=== PATIENT | male | born 1980 | race Caucasian/White ===

== ENCOUNTER 2018-01-25 19:01 | Inpatient (IN) | payer SELFPAY ==
[2018-01-25] MEDS ORDERED: methylPREDNISolone Sod Succ/PF 125 MG/2 ML VIAL ONE (19:19)
[2018-01-25] MEDS ORDERED: diphenhydrAMINE 50 MG/ML VIAL ONE (19:19)
--- NOTE | 2018-01-25 19:42 | RAD ---
CHEST TWO VIEWS: 01/25/18 COMPARISON: 11/11/16 HISTORY: Dyspnea. FINDINGS: Normal cardiac silhouette. Pulmonary vessels and hilum are normal. Costophrenic angles are clear. the re are patchy interstitial opacities, predominantly in the left hemithorax. Infiltrate is suspected. No pneumothorax or osseous abnormalities. IMPRESSION: Patchy interstitial opacities predominantly in the left hemithorax. Correlate for infiltrate. POS: [facility]
[2018-01-25 19:55] LABS: Band 1 % (5-11); Eosinophils 4 % (0-10); Lymphocytes 14 % (21-51); MDiff Complete? YES; Mean Corpuscular HGB CONC 34.3 g/dL (32.0-36.0); Mean Corpuscular Hemoglobin 31.5 pg (27.0-31.0); Mean Corpuscular Volume 91.9 fl (80.0-94.0); Mean Platelet Volume 9.3 fL (7.4-10.4); Monocytes 5 % (0-10); Neutrophil 70 % (42-75); PLT Morphology Comment Appears Adequate; Platelet Count 210 thou/uL (130-400); Reactive Lymphocytes 6 % (0-10); Red Blood Cell (RBC) Count 5.09 mill/uL (4.70-6.10); White Blood Cell (WBC) Count 10.6 thou/uL (4.8-10.8)
[2018-01-25 20:02] LABS: ALT (SGPT) 12 U/L (8-55); AST (SGOT) 11 U/L (5-34); Albumin 3.9 g/dL (3.5-5.0); Alkaline Phosphatase 93 U/L (40-150); Anion Gap 12 mmol/L (10-20); BUN (Urea Nitrogen) 16 mg/dL (8.9-20.6); Bilirubin, Total 0.2 mg/dL (0.2-1.2); CK (CPK) 111 U/L (30-200); Calc. Creatinine Clearance 0 mL/min (70-130); Calcium 8.9 mg/dL (7.8-10.44); Carbon Dioxide 29 mmol/L (22-29); Chloride 104 mmol/L (98-107); Estimated GFR-MDRD Greater than 90; Glucose 99 mg/dL (70-105); Potassium 3.8 mmol/L (3.5-5.1); Protein, Total 7.9 g/dL (6.0-8.3); Sodium 141 mmol/L (136-145)
[2018-01-25 20:03] LABS: CKMB 1.2 ng/mL (0-6.6); Troponin I Less than 0.010 ng/mL (< 0.028)
[2018-01-25] MEDS ORDERED: cefTRIAXone\\ROCEPHIN 1 GM VIAL ONE (20:07)
[2018-01-25] MEDS ORDERED: Azithromycin 500 MG VIAL ONE (20:31)
[2018-01-25] MEDS ORDERED: Ondansetron ODT 4 MG TAB SL PRN (22:11)
[2018-01-25] MEDS ORDERED: Ondansetron HCl/PF 4 MG/2 ML Vial IVP PRN (22:11)
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
[2018-01-25] MEDS ORDERED: Calcium Carbonate 500 MG ChewTAB PO PRN (22:38)
[2018-01-25] MEDS ORDERED: Ondansetron ODT 4 MG TAB PO PRN (22:38)
[2018-01-25] MEDS ORDERED: Acetaminophen 325 MG TAB PO PRN (22:38)
[2018-01-25] MEDS ORDERED: Acetaminophen 650 MG Suppository PR PRN (22:38)
[2018-01-25] MEDS ORDERED: Azithromycin 250 MG TAB PO ONE (22:49)
[2018-01-25] MEDS ORDERED: cefTRIAXone\\ROCEPHIN 1 GM in Syringe 10 ML IVPB SCH (23:59)
[2018-01-26 07:07] LABS: #Lymphocytes 0.9 thou/uL (1.20-3.40); #Monocytes 0.1 thou/uL (0.11-0.59); #Neutrophils 9.8 thou/uL (1.40-6.50); %Basophils 0.2 % (0.0-1.0); %Eosinophils 0.3 % (0.0-10.0); %Monocytes 0.6 % (0.0-10.0); %Neutrophils 90.9 % (42.0-75.0); Hemoglobin 16.2 g/dL (14.0-18.0); Mean Corpuscular HGB CONC 32.8 g/dL (32.0-36.0); Mean Corpuscular Hemoglobin 31.7 pg (27.0-31.0); Mean Corpuscular Volume 96.6 fl (80.0-94.0); Mean Platelet Volume 8.5 fL (7.4-10.4); Platelet Count 210 thou/uL (130-400); RBC Distribution Width 12.2 % (11.5-14.5); Red Blood Cell (RBC) Count 5.12 mill/uL (4.70-6.10); White Blood Cell (WBC) Count 10.8 thou/uL (4.8-10.8)
[2018-01-26] MEDS ORDERED: Azithromycin 250 MG TAB PO SCH (09:00)
--- NOTE | 2018-01-26 09:21 | PDOC.FM ---
- Subjective Subjective: Patient reports having continued breathing difficulty overnight and this morning with white yellow mucous production. Denies N/V, CP, changes in appetite , weakness. - Objective MAR Reviewed: Yes Vital Signs & Weight: Vital Signs (12 hours) Temp Pulse Resp BP BP Pulse Ox 01/26/18 08:45 98.3 F 105 H 8 L 122/62 88 L 01/26/18 08:05 96 01/26/18 08:04 100 24 H 01/26/18 03:10 101 H 20 132/65 89 L 01/26/18 01:59 104 H 22 H 90 L 01/26/18 00:05 90 L 01/25/18 23:42 65 L 01/25/18 22:38 98.7 F 98 20 01/25/18 21:38 98.7 F 98 20 133/71 96 Weight Weight 159.982 kg Result Diagrams: 01/26/18 04:12 01/25/18 19:39 <Phani Matthew - Last Filed: 01/26/18 09:20> - Objective Result Diagrams: 01/26/18 04:12 01/25/18 19:39 <Parvin Garcia - Last Filed: 01/26/18 13:36> Phys Exam - Physical Examination Constitutional: NAD HEENT: moist MMs, oral pharynx no lesions ventimask at 10L Neck: full ROM diffuse wheezing throughout, exam limited 2/2 body habitus Cardiovascular: RRR, no significant murmur Musculoskeletal: pulses present Neurological: normal sensation, moves all 4 limbs Psychiatric: normal affect, A&O x 3 Skin: no rash <Phani Matthew - Last Filed: 01/26/18 09:20> Dx/Plan (1) Acute respiratory failure with hypoxia Code(s): J96.01 - ACUTE RESPIRATORY FAILURE WITH HYPOXIA Status: Acute Plan: currently at 88-90% with 10L on Venti mask. continue to monitor throughout the day duonebs scheduled (2) Community acquired pneumonia Code(s): J18.9 - PNEUMONIA, UNSPECIFIED ORGANISM Status: Acute Plan: continue with azithromycin (3) Obesity Code(s): E66.9 - OBESITY, UNSPECIFIED Status: Acute (4) Tobacco abuse Code(s): Z72.0 - TOBACCO USE Status: Acute <Phani Matthew - Last Filed: 01/26/18 09:20> Attending Addendum - Attending Addendum Date/Time: 01/26/18 1000 I personally evaluated the patient and discussed the management with Dr. Matthew I agree with the History, Examination, Assessment and Plan documented above with any addition or exceptions noted below. Patient is A&O x 3 in nad. He is requesting to be sent home. Lungs- occ wheeze , rhonchi in MALINI. Hypoxia secondary to CAP- O2 to keep sats >92%. Was on ventimask overnight because he refused nasal cannula. Will try to transition back to [place] to see how much O2 he is requiring. CAP-On Azithromycin and Rocephin. Nebs as needed. Presumed JOSE CARLOS- apnea and desats overnight- patient will need an outpatient sleep study. Strong family history of colon cancer- will need o/p colonoscopy. <Parvin Garcia - Last Filed: 01/26/18 13:36>
[2018-01-26] MEDS: Azithromycin 250 MG TAB PO SCH (09:25)
[2018-01-26 12:37] LABS: CO2 Tension 66.6 mmHg (35.0-45.0)
[2018-01-26 12:38] LABS: Actual Bicarbonate (HCO3a) 31.9 mEq/L (22-26); Base Excess (BEa) 3.2 mEq/L (0 (+/-) 2.5); Hematocrit-ABG 51.2 % (42.0-52.0); Hemoglobin (Hb) 15.7 g/dL (14.0-18.0)
[2018-01-26 12:39] LABS: Calcium, Ionized 1.3 mmol/L (1.12-1.30); Puncture Site RRA
--- NOTE | 2018-01-26 13:18 | PDOC.EVN ---
Event Note - Event Note Event Note: 37 yo with acute hypoxic respiratory failure who was still requiring significant o2 and having 90 o2 saturation. ABG was ordered which showed hypoxia super imposed on chronic hypercapneic respiratory failure. Patient had normal mentation, tachypnea, but only mild increased WOB. He is morbidly obese. He reportedly had several apneic events overnight. Plan: repeat CXR to rule out ARDS, transfer to [facility], start ppx lovenox, and start continuous bipap. Will order a Stat CTA that can be done during transport to [facility]. <Norris Rodriguez - Last Filed: 01/26/18 13:30> Attending Addendum - Attending Addendum Date/Time: 01/26/18 3817 I personally evaluated the patient and discussed the management with Dr. Rodriguez I agree with the History, Examination, Assessment and Plan documented above with any addition or exceptions noted below- Patient currently feeling better. Earlier had increased work of breathing and complaining of SOB. (+) cough. O2 sat 99% on 2L NC P 105 Lungs- few crakles in bases and diminished BS. CV- tachycardic. A/P: 1) Acute on chronic hypoxic resp failure- improved currently; will monitor in [facility]. pulmonary notified. Plan for BiPap/CPap while asleep for presumptive JOSE CARLOS. <Paola Carrasco - Last Filed: 01/26/18 15:23>
--- NOTE | 2018-01-26 14:26 | RAD ---
CHEST 1 VIEW: HISTORY: Pneumonia. COMPARISON: 01/25/18. FINDINGS: Cardiac silhouette is magnified by projection. Pulmonary vasculature is upper limits of normal. Med iastinum is midline. Right hemidiaphragm remains elevated. No lobar consolidation or evidence of pn eumothorax. IMPRESSION: Mild pulmonary vascular congestion. POS: [facility]
[2018-01-26] MEDS ORDERED: Enoxaparin Sodium 40 MG/0.4 ML SYRINGE SC SCH (15:00)
[2018-01-26] MEDS ORDERED: Iopamidol 370 76% 100 ML VIAL ONE (15:14)
--- NOTE | 2018-01-26 15:18 | CT ---
CT ARTERIOGRAM CHEST WITH IV CONTRAST AND 3D MIP IMAGING: HISTORY: Chest pain. Dyspnea. FINDINGS: There is good contrast opacification of the pulmonary arteries and thoracic aorta with bovine origin of the great vessels from the aortic arch. Motion artifact limits detail of the more peripheral pulm onary arteries. Minimal bibasilar atelectasis. Calcified granulomata are consistent with healed granulomatous diseas e. IMPRESSION: No CT evidence of pulmonary embolus. POS: [facility]
[2018-01-26] MEDS ORDERED: predniSONE 20 MG TAB PO SCH (15:45)
[2018-01-26] MEDS ORDERED: Furosemide 20 MG/2 ML VIAL SLOW IVP SCH (15:45)
--- NOTE | 2018-01-26 16:20 | CON ---
DATE OF CONSULTATION: 01/26/2018 SERVICE: Pulmonary Medicine. REASON FOR CONSULT: Respiratory failure. HISTORY OF PRESENT ILLNESS: The patient is a 37-year-old white male with past medical history significant for morbid obesity. He was in his usual state of health until Monday. At that point, started having some allergy issues. He got a tickle in the throat yesterday morning. Yesterday, he was doing some yard work. He did fairly well throughout the day, but did notice increasing dyspnea with exertion at that time. He was not having any fevers or chills, but later that evening, he started having a cough, bringing up clear sputum as well as chunks of mucus and dark yellow material. Ultimately, he was struggling along and on Monday, he went to [place] to get some auto parts. He went into the store and picked up his parts and put him in his truck. He then climbed into his cab and had a sudden onset of horrendous shortness of breath and lightheadedness. He has also had a little bit of palpitations from time to time. That being said, denies having any chest pain, nausea, vomiting, diarrhea , arthralgias, arthritis. He is not having any dysuria and otherwise, he is in his usual state of health. He was subsequently put in the hospital and treated for pneumonia. That being said, on the floor, he had increasing respiratory distress. He was subsequently brought to the IMCU in a consult and he was generated. On the way down, they went to the CT scan and looking for a pulmonary embolism. By the time he got here, he was on 2 liters nasal cannula and her saturations were doing just fine. PAST MEDICAL HISTORY: None. PAST SURGICAL HISTORY: Left hand surgery. FAMILY HISTORY: Noncontributory. SOCIAL HISTORY: He has got about a 10-15 pack year history of smoking. He uses alcohol occasionally. He denies any street drugs. He has no exposure to chemicals, dust, asbestos or tuberculosis otherwise. ALLERGIES: No known drug allergies. MEDICATIONS: List of his inpatient medications were reviewed. Couple of small updates were made. REVIEW OF SYSTEMS: General, head, ears, eyes, nose, throat, cardiovascular, respiratory, GI, , musculoskeletal, neurologic and skin is negative except as mentioned in the HPI. PHYSICAL EXAMINATION: VITAL SIGNS: Afebrile, pulse 98, blood pressure 135/59, respirations 20, saturation 97% on 2 liters nasal cannula. GENERAL: The patient is awake, alert, no apparent distress. LUNGS: Decent air entry bilaterally. There is no prolonged expiratory phase, but I do appreciate wheezing. Crackles are present throughout bilateral lung cifuentes and more predominantly displayed in the bibasilar regions. HEART: Normal rate, regular. ABDOMEN: Soft, nontender, nondistended. Bowel sounds are positive. MUSCULOSKELETAL: No cyanosis or clubbing. There is trace pitting in the bilateral lower extremities. NEUROLOGIC: Grossly nonfocal. IMAGING: WBC 10.8, hemoglobin 16.2, platelets 210,000. Neutrophil count is essentially unremarkable before steroids were initiated. A pH 7.30, pCO2 66, pO2 of 65. This was on a Ventimask at that time. Basic metabolic profile and liver function studies are essentially unremarkable. Cardiac enzymes negative x1. IMAGING: CT of the chest demonstrates no acute cardiopulmonary abnormality other than some very subtle changes consistent with slight volume overload including interstitial fullness, and ground glass opacifications, which seemed to be a little bit more predominantly displayed in the periphery and in the bibasilar region. Small areas of atelectasis were noted. Of note, there is no large PE identified. ASSESSMENT: 1. Acute hypoxic respiratory failure. 2. Chronic hypercapnic respiratory failure. 2. Acute on chronic diastolic heart failure. 3. Acute bronchitis, possible. 4. Tobacco abuse. PLAN: I will initiate the patient on 40 mg of prednisone daily for a total duration of 5 days. He does not have a consolidating pneumonia, but he could still have an atypical pneumonia. As such, we will continue the azithromycin, but dropped the Rocephin. Echocardiogram will be performed. We will give him a couple doses of Lasix today and tomorrow morning. We will schedule nebulized medications. I will send off a respiratory virus panel, but his presentation was a slightly atypical for an acute viral infection. Pulmonary Critical Care will continue to follow along. He very likely has sleep apnea, so we will put him on BiPAP. Based on his size, we will give him slightly more generous pressures at 15/11 and see how he tolerates that this evening. 70 minutes have been devoted to this patient in various activities. I personally reviewed all imaging studies and laboratory data noted within this document. For fifty percent of this time, I was interacting with the patient at the bedside or coordinating care with the care team. For the remainder of the time I was immediately available to the patient in the hospital unit. ENRRIQUE
--- NOTE | 2018-01-27 05:54 | PDOC.FM ---
- Subjective Subjective: Patient is doing quite well this morning. Reports the best night of sleep he's ever had using the BIPAP. His SOB, cough, and overall poor feeling is greatly decreased. He is worried about getting home to take care of his dogs. He feels well enough to go home. This morning, he two episodes where his saturation dropped into the 80's on bipap and his HR dropped into the 40's. Patient resting comfortably during these episodes which were short lived. - Objective MAR Reviewed: Yes Vital Signs & Weight: Vital Signs (12 hours) Temp Pulse Resp BP Pulse Ox 01/27/18 04:00 97.8 F 81 18 118/57 L 97 01/27/18 02:53 75 18 96 01/27/18 00:00 98.6 F 103 H 20 144/58 H 93 L 01/26/18 23:20 99 24 H 97 01/26/18 23:12 94 20 98 01/26/18 20:00 99.6 F 102 H 22 H 128/73 93 L 01/26/18 18:57 95 20 96 I&O: 01/25/18 01/26/18 01/27/18 06:59 06:59 06:59 Intake Total 732 Output Total 475 Balance 257 Result Diagrams: 01/27/18 07:05 01/27/18 07:05 <Doretha Candelario - Last Filed: 01/27/18 11:44> - Objective Vital Signs & Weight: Vital Signs (12 hours) Temp Pulse Resp BP Pulse Ox 01/27/18 11:26 98.6 F 90 16 134/63 97 01/27/18 08:08 81 18 92 L 01/27/18 08:00 98.8 F 78 22 H 95 01/27/18 07:30 98.8 F 78 22 H 123/73 95 01/27/18 04:00 97.8 F 81 18 118/57 L 97 01/27/18 02:53 75 18 96 I&O: 01/26/18 01/27/18 01/28/18 06:59 06:59 06:59 Intake Total 3172 Output Total 875 Balance 2297 Result Diagrams: 01/27/18 07:05 01/27/18 07:05 <Cb Ryder - Last Filed: 01/27/18 12:20> Phys Exam - Physical Examination Constitutional: NAD morbidly obese HEENT: moist MMs Respiratory: no wheezing, no rales RLL with decreased breath sounds, no increased work of breathing good air movement Cardiovascular: RRR, no significant murmur Gastrointestinal: soft, non-tender, no distention Musculoskeletal: no edema Neurological: moves all 4 limbs Psychiatric: normal affect, A&O x 3 <Doretha Candelario - Last Filed: 01/27/18 11:44> Dx/Plan (1) Acute respiratory failure with hypoxia Code(s): J96.01 - ACUTE RESPIRATORY FAILURE WITH HYPOXIA Status: Acute (2) Community acquired pneumonia Code(s): J18.9 - PNEUMONIA, UNSPECIFIED ORGANISM Status: Acute (3) Obesity Code(s): E66.9 - OBESITY, UNSPECIFIED Status: Acute (4) Tobacco abuse Code(s): Z72.0 - TOBACCO USE Status: Acute (5) Obstructive sleep apnea Code(s): G47.33 - OBSTRUCTIVE SLEEP APNEA (ADULT) (PEDIATRIC) Status: Suspected - Plan Plan: Acute Hypoxic Resp Failure 2/2 CAP -Cxray- shows infiltrate in L. lung -Continue Azithromycin -Respiratory viral panel + for rhinovirus -Duonebs q4 hrs -Patient on bipap overnight and tolerating well. -transfer to the floor today with bipap use overnight. Pulmonary Edema -Lasix daily Suspected JOSE CARLOS -f/u with Dr. Celestin outpatient for sleep study -will need CPAP at home Tobacco Abuse -Encourage cessation Dispo: Likely d/c home tomorrow if not requiring o2 <Doretha Candelario - Last Filed: 01/27/18 11:44> Attending Addendum - Attending Addendum Date/Time: 01/27/18 1215 I personally evaluated the patient and discussed the management with Dr. Candelario I agree with the History, Examination, Assessment and Plan documented above with any addition or exceptions noted below. Patient with notable rhinovirus on viral panel should be stable to dismiss home this pm with further outpatient management attempt arrange ventilatory support for JOSE CARLOS. <Cb Ryder - Last Filed: 01/27/18 12:20>
--- NOTE | 2018-01-27 06:07 | PRG ---
DATE OF SERVICE: 01/27/2018 SERVICE: Pulmonary Medicine. INTERVAL HISTORY: The patient is doing fine from a respiratory standpoint. He is breathing comfortably. He loves his CPAP. He broke out into a little sweat overnight because the mattress does not breathe. Otherwise, he denies any current fevers, chills, nausea or vomiting. His breathing is much more comfortable this morning. No labor when he is doing it. We are waiting for the results of the echocardiogram. PHYSICAL EXAMINATION: VITAL SIGNS: Afebrile currently. His T-max overnight was 99.6. Pulse 75, blood pressure 144/58, respirations 20, saturation 96% on 21% FiO2 delivered via BiPAP. HEENT: Normocephalic, atraumatic. Sclerae are white, conjunctivae pink. Oral and nasal mucosa is moist without lesions. LUNGS: Excellent air entry. The crackles are much improved. The expiratory wheezing is no longer present. HEART: Normal rate, regular. ABDOMEN: Soft, nontender, nondistended. Bowel sounds are positive. MUSCULOSKELETAL: No cyanosis or clubbing. There is trace pitting in the bilateral lower extremities. NEUROLOGIC: Grossly nonfocal. LABORATORY DATA: WBC 10.8, hemoglobin 16.2, platelets 210,000. Basic metabolic profile is otherwise unremarkable. PH of 7.30, pCO2 of 66, pO2 of 65 at that time. Basic metabolic profile and liver function studies are essentially unremarkable. CK-MB is normal as well as troponin. Respiratory virus panel is positive for rhinovirus. ASSESSMENT: 1. Acute hypoxic respiratory failure, improving. 2. Acute on chronic diastolic heart failure. 3. Acute bronchitis secondary to rhinovirus. 4. Tobacco abuse. 5. Obstructive sleep apnea, suspected. PLAN: The patient can have 5 days of steroids, and antibiotics. We will need to be evaluated for sleep apnea in the outpatient setting. From my perspective , he is stable for transition to the medical unit. Pulmonary Critical Care will continue to follow along during the hospital stay. If he remains stable, he can likely be considered for discharge this afternoon or tomorrow morning if things go well. ENRRIQUE
[2018-01-27 07:12] LABS: #Basophils 0.1 thou/uL (0.0-0.2); #Lymphocytes 2.7 thou/uL (1.20-3.40); #Neutrophils 8.8 thou/uL (1.40-6.50); %Basophils 0.6 % (0.0-1.0); %Eosinophils 0.3 % (0.0-10.0); %Lymphocytes 21.3 % (21.0-51.0); %Monocytes 8.1 % (0.0-10.0); %Neutrophils 69.8 % (42.0-75.0); Hemoglobin 15.3 g/dL (14.0-18.0); Mean Corpuscular HGB CONC 32.5 g/dL (32.0-36.0); Mean Corpuscular Hemoglobin 31.4 pg (27.0-31.0); Mean Corpuscular Volume 96.8 fl (80.0-94.0); Mean Platelet Volume 8.1 fL (7.4-10.4); Platelet Count 207 thou/uL (130-400); RBC Distribution Width 12.5 % (11.5-14.5); Red Blood Cell (RBC) Count 4.85 mill/uL (4.70-6.10); White Blood Cell (WBC) Count 12.5 thou/uL (4.8-10.8)
[2018-01-27 07:34] LABS: Anion Gap 10 mmol/L (10-20); BUN (Urea Nitrogen) 12 mg/dL (8.9-20.6); Calc. Creatinine Clearance 332 mL/min (70-130); Calcium 8.9 mg/dL (7.8-10.44); Carbon Dioxide 31 mmol/L (22-29); Chloride 101 mmol/L (98-107); Estimated GFR-MDRD Greater than 90; Glucose 108 mg/dL (70-105); Potassium 4.2 mmol/L (3.5-5.1); Sodium 138 mmol/L (136-145)
[2018-01-27] MEDS ORDERED: predniSONE 20 MG TAB PO SCH (08:00)
[2018-01-27] MEDS: Azithromycin 250 MG TAB PO SCH (08:06)
[2018-01-27] MEDS ORDERED: Enoxaparin Sodium 40 MG/0.4 ML SYRINGE SC SCH (09:00)
[2018-01-27] MEDS ORDERED: Furosemide 20 MG/2 ML VIAL SLOW IVP SCH (09:00)
[2018-01-27] MEDS: guaiFENesin/DM ER PO SCH ×2 (09:28→20:39)
[2018-01-27] MEDS ORDERED: guaiFENesin/DM ER PO PRN (16:35)
[2018-01-27 16:58] VITALS: BP 133/81; TEMP 98.3
--- NOTE | 2018-01-29 15:14 | DIS-2 ---
DATE OF ADMISSION: 01/26/2018 DATE OF DISCHARGE: 01/27/2018 ADMITTING RESIDENT: Dr. Compa Santos. DISCHARGE RESIDENT: Doretha Candelario DO ADMITTING ATTENDING: Dr. Guerline Corral. DISCHARGE ATTENDING: Dr. Cb Ryder. CONSULTATIONS: Pulmonary, Dr. Celestin. PROCEDURES/IMAGING: Chest x-ray shows patchy interstitial opacities predominantly in the left hemith orax that was performed on 01/25/2018. Chest x-ray on 01/26/2018 with mild pulmonary vascular conges tion. Chest thorax CTA reveals no CT evidence of pulmonary embolus and bibasilar atelectasis as well as calcified granulomata consistent with healing granulomatous disease. PRIMARY DIAGNOSES: 1. Acute hypoxia, resolved. 2. Community-acquired pneumonia. 3. Pulmonary edema. 4. Suspected obstructive sleep apnea. 5. Tobacco abuse. DISCHARGE MEDICATIONS: 1. Prednisone 20 mg tablet p.o. daily for 5 days. 2. Lasix 20 mg p.o. daily. 3. Azithromycin 250 mg p.o. daily x5 days. 4. Albuterol sulfate inhaler 1 puff inhaled q.4 hours p.r.n. shortness of breath. DISCONTINUED MEDICATIONS: None. HISTORY OF PRESENT ILLNESS AND HOSPITAL COURSE: Patient is a 37-year-old male who comes in with chief complaint of shortness of breath and dyspnea on exertion. He started getting sick on Mon day with a runny nose and nasal congestion. He tried allergy medication with no relief. He denies n ausea, vomiting, diarrhea, and constipation. Denies chest pain. Does report feeling feverish and so me head congestion. On admission, he was satting 88% on room air. He required 2 liters of oxygen at this time. He was started on Rocephin and azithromycin for antibiotic coverage of possible communit y-acquired pneumonia with a chest x-ray showing infiltrate in the left hemithorax. DuoNebs were sche duled every 4 hours. He was initially admitted to medical observations, where he was found to have s ignificant O2 requirements, satting 98% with nasal cannula on, and ABG confirmed hypoxia superimposed on chronic hypercapnic respiratory failure. At this time, also patient did have reports of several apneic events overnight. At this time, a chest x-ray was ordered and he was transferred to the [facility] for BiPAP. Chest x-ray was within normal limits, only showing vascular congestion. He was started o n BiPAP and tolerated it well. Patient reports the best sleep of his life while on the BiPAP that ev ening. A CTA was ordered to rule out pulmonary embolus, which was negative. Despite chest x-ray elli wing vascular congestion only, patient was continued on antibiotics for complete course. Exam still consistent with a pneumonia. After being on the BiPAP, patient's hypoxia improved. He was weaned of f nasal cannula, satting about 95% on room air. His vital signs remained stable throughout his stay. Other than the hypoxia that was mentioned above. Labs values within normal limits with exception o f a mild left shift and the ABG which showed pH of 7.3, pCO2 of 66.6, PaO2 of 65. Respiratory viral panel was ordered. The patient was positive for rhinovirus and echocardiogram was performed, which s howed normal left ventricular function, although exam was technically difficult, patient back at base line. Not requiring any oxygen. He was discharged home to follow up with Dr. Celestin in clinic for a sleep study and evaluation for JOSE CARLOS. DISPOSITION: Stable. DISCHARGE INSTRUCTIONS: 1. Location: Home. 2. Diet: Regular. 3. Activity: As tolerated. 4. Follow up with Dr. Celestin in 1-2 weeks and [facility] in 1-2 weeks.
== END 2018-01-27 21:58 | disposition home or self-care (01) | DRG 193 ==
LOC: SCSER 19:01 → 2SW 20:25 → OBSVTOIN 01-26 12:35 → IMCU/EMU 01-26 14:35 → T4-A 01-27 12:37
PROVIDERS: ADMIT Family Medicine; ATTEND Family Medicine
PROC: 5A09357 Assistance with Respiratory Ventilation, Less than 24 Consecutive Hours, Continuous Positive Airway Pressure (ICD-10-PCS; principal; 2018-01-26)
DX: J18.9 Pneumonia, unspecified organism (principal); J96.21 Acute and chronic respiratory failure with hypoxia; I50.33 Acute on chronic diastolic (congestive) heart failure; Z68.43 Body mass index [BMI] 50.0-59.9, adult; E66.01 Morbid (severe) obesity due to excess calories; F17.210 Nicotine dependence, cigarettes, uncomplicated; G47.33 Obstructive sleep apnea (adult) (pediatric); B97.89 Other viral agents as the cause of diseases classified elsewhere
CPT/HCPCS: 36415; 71045; 71046; 71275; 80048; 80053; 82550; 82553; 82805; 84484; 85025; 87633; 87798; 93005; 93306; 94640; 94660; 94760; 96365; 96367; 96375; 99406; J0456; J0696; J1200; J2930; J7620

== ENCOUNTER 2020-04-11 02:13 | Inpatient (IN) | payer SELFPAY, OTHER ==
--- NOTE | 2020-04-11 04:05 | PDOC.FPRHP ---
- History of Present Illness Chief Complaint: SOB History of Present Illness: Patient is a 40 y/o male with a PMH significant for Morbid Obesity, Tobacco Abuse, and Untreated JOSE CARLOS who presents to the ED from an outside hospital after experiencing extreme SOB. Patient states that for the past 2 days , he has noticed a worsening of his chronic cough, as well as mild increase in sputum production. Patient also notes that he has felt a "tightness" in his back , but denies outright chest pain. Patient states that he recently had an episode of generalized weakness and confusion for ~24H, which he attributed to working outside all day and taking in minimal PO intake, but per chart review this episodes resolved following the administration of 2L NS at a nearby hospital. Prior to admission during this encounter, the patient was given Dexamethasone x1, DuoNebs x2 and placed on a Non-Rebreather faskemask when he was found to have an O2Sat in the 70s. However, the patient was subsequently transitioned to 4L NS with O2Sats in the high 90s. Patient denies any other symptoms, to include fevers, chills, changes in vision , feelings of nausea or vomiting, recent travel or known sick contacts. ED Course: See HPI - Allergies/Adverse Reactions Allergies Allergy/AdvReac Type Severity Reaction Status Date / Time shellfish derived Allergy Unknown Verified 04/11/20 05:33 No Known Drug Allergies Allergy Verified 12/23/19 14:13 - Home Medications Medication Instructions Recorded Confirmed Type No Known 04/11/20 04/11/20 History - History PMHx: JOSE CARLOS PSHx: Non-Contributory FHx: Brother (DM2, Asthma) Social: Tobacco Abuse (2PPD), Minimal EtOH Use, Remote MJ Abuse Code: Full - Review of Systems General: reports: fatigue. denies: fever/chills, weight/appetite/sleep changes Eyes: denies: vision changes ENT: denies: rhinorrhea Respiratory: reports: cough, congestion, shortness of breath Cardiovascular: denies: chest pain, palpitation, edema Gastrointestinal: denies: nausea, vomiting, diarrhea, constipation, abdominal pain, GI bleeding Genitourinary: denies: dysuria Skin: denies: rashes Musculoskeletal: denies: arthritis/arthralgias Neurological: reports: syncope (See HPI). denies: seizure - Vital signs BP: [160/83] HR: [96] RR: [97] Tmax: [98.2] Pox: [92]% on [4L NC] Wt: [178 kg ] - Physical Exam Constitutional: NAD, awake, alert and oriented HEENT: normocephalic and atraumatic, PERRLA, EOMI, conjunctiva clear, no scleral icterus, grossly normal vision, grossly normal hearing, normal nasal mucosa, MMM, oropharynx clear Neck: supple, FROM, no LAD Chest: no-tender to palpation, no lesions Heart: RRR, normal S1/S2 Lungs: good air movement, no rales/rhonchi, no retractions, other (Scant wheezing heard diffusely) Abdomen: soft, non-tender, bowel sounds present, no masses/distention, no hernias Musculoskeletal: normal structure, ROM grossly normal Neurological: no focal deficit Skin: no jaundice Heme/Lymphatic: no unusual bruising or bleeding, no purpura, no LAD FMR H&P: A/P - Problem List (1) Acute respiratory failure with hypoxia Current Visit: No Status: Acute Code(s): J96.01 - ACUTE RESPIRATORY FAILURE WITH HYPOXIA (2) Obesity Current Visit: No Status: Chronic Code(s): E66.9 - OBESITY, UNSPECIFIED Qualifiers: Obesity type: due to excess calories Obesity classification: adult class 3 (BMI >= 40) Body mass index: BMI 50.0-59.9 (3) Tobacco abuse Current Visit: No Status: Chronic Code(s): Z72.0 - TOBACCO USE (4) Obstructive sleep apnea Current Visit: No Status: Chronic Code(s): G47.33 - OBSTRUCTIVE SLEEP APNEA (ADULT) (PEDIATRIC) - Plan Patient is a 40 y/o male with a PMH significant for Morbid Obesity and ongoing Tobacco Abuse who presents to the ED for evaluation of acute onset worsening of his chronic cough and subsequent SOB. # Acute Hypoxic Respiratory Failure -Suspect multi-factorial etiology - most likely 2/2 undiagnosed COPD and/or undiagnosed Asthma, untreated JOSE CARLOS and ongoing Tobacco Abuse -Based on extensive Hx of Tobacco Abuse, COPD Exacerbation appears to be the most likely cause -COVID-19: Negative (Rapid Swab) -RVP: Pending -Patient has been subsequently weened down to 4L NC - will continue as patient tolerates -DuoNebs Q4H JESSICA -Will initiate daily Prednisone and Azithromycin # Morbid Obesity -Possibly contributing factor due to Morbid Hypoventilation Syndrome -Will encourage HH w/ Low Sodium Diet # Tobacco Abuse -Patient endorses a 2PPD Hx -Nicotine Patch 21 mg QD -Will encourage Tobacco Abuse Cessation at subsequent appointment PCP: GERMÁN Code: Full Activity: Ad obdulia Diet: HH VTE PPx: Lovenox Dispo: Patient is currently stable on the Medical Floor for ongoing treatment of Acute Hypoxic Respiratory Failure, likely secondary to undiagnosed COPD Exacerbation. Will continue supplemental O2, DuoNebs, Prednisone and Azithromycin as per above. Continue to ween supplemental O2 as tolerated by the patient and plan for DC when stable. Expected LOS < 48H. FMR H&P: Upper Level - Plan Date/Time: 04/11/20 0405 I, [], have evaluated this patient and agree with findings/plan as outlined by strategy intern resident. Pertinent changes/additions are listed here. Addendum - Attending - Attending Attestation Date/Time: 04/11/20 0800 I personally evaluated the patient and discussed the management with Dr. Amaral. I agree with the History, Examination, Assessment and Plan documented above with any addition or exceptions noted below. Patient here for suspected acute hypoxic resp failure 2/2 Obesity and COPD exacerbation. COVID negative. Continue neb treatments, steroids, wean O2 as tolerated. RVP pending. Further mgmt pending clinical course. He meets inpatient status based on the need for O2.
[2020-04-11 04:11] LABS: Troponin I Less than 0.010 ng/mL (< 0.028)
[2020-04-11] MEDS ORDERED: Acetaminophen 325 MG TAB PO PRN (05:54)
[2020-04-11] MEDS ORDERED: Guaifenesin DM 100-10/5 ML UDCUP PO PRN (05:54)
[2020-04-11 07:42] LABS: Troponin I 0.016 ng/mL (< 0.028)
[2020-04-11] MEDS ORDERED: Nystatin Powder 15 GM BOT TOP PRN (08:54)
[2020-04-11] MEDS ORDERED: Albuterol Sulfate 2.5 mg/3 ml Neb NEB PRN (08:57)
[2020-04-11] MEDS ORDERED: Azithromycin 250 MG TAB PO SCH (09:00)
[2020-04-11] MEDS ORDERED: predniSONE 20 MG TAB PO SCH (09:00)
[2020-04-11] MEDS: Enoxaparin Sodium 40 MG/0.4 ML SYRINGE SC SCH (09:21)
[2020-04-11] MEDS: Nicotine 21 MG PATCH TD SCH (09:21)
[2020-04-11 11:08] LABS: Base Excess (BEa) 7.3 mEq/L (-2.0 to +3.0); Calcium, Ionized (arterial) 1.14 mmol/L (1.12-1.30); Carboxyhemoglobin (COHb) 3.2 gm% (0.0-3.0); Hemoglobin (Hb) 15.3 g/dL (14.0-18.0); O2 Tension (PaO2), arterial 104.4 mmHg (80.0-100.0); Potassium - ABG Lab 5.41 mmol/L (3.70-5.30)
[2020-04-11 11:09] LABS: ALV-art Gradient -7.115 (0-20); CO2 Tension 104.7 mmHg (35.0-45.0); Puncture Site LRA
[2020-04-11 11:23] VITALS: BP 169/89
--- NOTE | 2020-04-11 12:18 | RAD ---
CHEST 1 VIEW PORTABLE: Date: 04/11/2020 HISTORY: Increased somnolence, change in respiratory status. FINDINGS: Less inspiration with some vascular crowding and some minimal increased interstitial markings in the perihilar regions. No new confluent process. No significant pleural effusion. IMPRESSION: Poor inspiratory effort with minimal increased interstitial markings in the perihilar regions since t he prior study. No confluent pneumonia or pleural effusion. Continue short-term follow-up. POS: RRE
--- NOTE | 2020-04-11 16:31 | CON ---
DATE OF CONSULTATION: 04/11/2020 REASON FOR CONSULTATION: Respiratory failure requiring BiPAP. HISTORY OF PRESENT ILLNESS: This is a 40-year-old male, who was hospitalized today with increasing shortness of breath over the last 2 days as well as cough and chest tightness. He was ruled out for COVID with a negative test. His past medical history is remarkable for JOSE CARLOS, but I am not sure he has ever had a sleep study in the past. He was seen by Dr. Celestin back in 2018 from our group and felt to have diastolic heart failure in addition to the sleep apnea. I am not sure he ever went and got sleep study. PAST SURGICAL HISTORY: Unremarkable. FAMILY MEDICAL HISTORY: Remarkable for diabetes and asthma. SOCIAL HISTORY: Two-pack per day smoker. Does not consume alcohol. Occasionally uses marijuana. REVIEW OF SYSTEMS: Cannot be obtained as he is currently obtunded. PHYSICAL EXAMINATION: VITAL SIGNS: Temperature 97, pulse 91, O2 saturation low 90s, on BiPAP, blood pressure 169/89. The patient is . His BMI is 56. GENERAL: He is difficult to arouse. HEENT: Remarkable for class 4 Mallampati airway. NECK: No adenopathy or JVD. LUNGS: Poor air movement. CARDIOVASCULAR: S1 and S2, regular. ABDOMEN: Morbidly obese, soft, nontender. EXTREMITIES: He has insect bites over his legs. He has a fungal rash over his upper chest. LABORATORY DATA: Troponin was 0.016. Procalcitonin was 0.03. PH 7.20, pCO2 of 104, pO2 of 104. Sodium 141, potassium 3.7, chloride 99, CO2 of 32, BUN 13, creatinine 0.8, and glucose 133. Chest x-ray shows cardiomegaly. No mass, effusion, or infiltrate. ASSESSMENT: This patient is likely suffering from obstructive sleep apnea/obesity hypoventilation syndrome. He could have a COPD exacerbation with this. PLAN: 1. BiPAP. 2. Switch to IV steroids since he is somewhat lethargic and probably cannot take oral medications at this time. 3. IV Diamox. 4. Nebulization treatments. Job ID: [id number]
[2020-04-11 17:19] LABS: Actual Bicarbonate (HCO3a) 31.6 mEq/L (22-28); Base Excess (BEa) 2.4 mEq/L (-2.0 to +3.0); Calcium, Ionized (arterial) 1.18 mmol/L (1.12-1.30); Carboxyhemoglobin (COHb) 2.7 gm% (0.0-3.0); Hemoglobin (Hb) 14.9 g/dL (14.0-18.0); O2 Tension (PaO2), arterial 61.3 mmHg (80.0-100.0); Potassium - ABG Lab 4.25 mmol/L (3.70-5.30); pH, Arterial 7.27 (7.35-7.45)
[2020-04-11 17:20] LABS: CO2 Tension 70.6 mmHg (35.0-45.0)
[2020-04-11 17:21] LABS: Puncture Site LB
[2020-04-11] MEDS: methylPREDNISolone Sod Succ 40 MG VIAL IVP SCH ×2 (17:57→23:08)
[2020-04-11] MEDS ORDERED: Sterile Water 10 ML VIAL FS PRN (20:08)
[2020-04-11] MEDS: acetaZOLAMIDE Sodium 500 mg Vial IVP SCH (20:26)
[2020-04-12 03:44] LABS: #Eosinphils 0.1 thou/uL (0.0-0.7); #Lymphocytes 1.3 thou/uL (1.20-3.40); #Monocytes 0.4 thou/uL (0.11-0.59); #Neutrophils 10.3 thou/uL (1.40-6.50); %Eosinophils 0.5 % (0.0-10.0); %Lymphocytes 10.7 % (21.0-51.0); %Monocytes 3.4 % (0.0-10.0); %Neutrophils 85.4 % (42.0-75.0); Hemoglobin 14.6 g/dL (14.0-18.0); Mean Corpuscular HGB CONC 31.9 g/dL (32.0-36.0); Mean Corpuscular Hemoglobin 32.4 pg (27.0-31.0); Mean Platelet Volume 9.5 fL (7.4-10.4); Platelet Count 218 thou/uL (130-400); RBC Distribution Width 13.1 % (11.5-14.5); Red Blood Cell (RBC) Count 4.53 mill/uL (4.70-6.10); White Blood Cell (WBC) Count 12.1 thou/uL (4.8-10.8)
[2020-04-12 03:58] LABS: Anion Gap 14 mmol/L (10-20); BUN (Urea Nitrogen) 10 mg/dL (8.9-20.6); Calc. Creatinine Clearance 313 mL/min (70-130); Calcium 8.8 mg/dL (7.8-10.44); Carbon Dioxide 28 mmol/L (22-29); Chloride 100 mmol/L (98-107); Estimated GFR-MDRD Greater than 90; Glucose 170 mg/dL (70-105); Potassium 4.6 mmol/L (3.5-5.1); Sodium 137 mmol/L (136-145)
[2020-04-12] MEDS: methylPREDNISolone Sod Succ 40 MG VIAL IVP SCH ×4 (05:24→23:39)
--- NOTE | 2020-04-12 06:17 | PDOC.FM ---
- Subjective Subjective: Pt was resting comfortably. Looked noticably more alert than yesterday. - Objective Vital Signs & Weight: Vital Signs (12 hours) Temp Pulse Resp Pulse Ox 04/12/20 03:26 97.7 F 04/12/20 02:55 88 18 96 04/11/20 23:26 97.9 F 04/11/20 23:22 91 20 93 L 04/11/20 20:00 95 04/11/20 19:37 98.2 F 04/11/20 19:27 99 20 98 Weight Weight 178.262 kg Most Recent Monitor Data Heart Rate from ECG 88 NIBP 116/75 NIBP BP-Mean 88 Respiration from ECG 24 SpO2 98 I&O: 04/10/20 04/11/20 04/12/20 06:59 06:59 06:59 Intake Total 3310 Output Total 4350 Balance -1040 Result Diagrams: 04/12/20 03:24 04/12/20 03:24 Phys Exam - Physical Examination Constitutional: NAD HEENT: moist MMs, sclera anicteric Neck: no JVD wheezing bilat Cardiovascular: RRR, no significant murmur Gastrointestinal: non-tender morbidly obese mild edema bilat LE Neurological: non-focal Psychiatric: normal affect Deviation from normal: healing wounds on bilat LE Dx/Plan - Plan Plan: Patient is a 40 y/o male with a PMH significant for Morbid Obesity and ongoing Tobacco Abuse who presents to the ED for evaluation of acute onset worsening of his chronic cough and subsequent SOB. # Acute Hypoxic Respiratory Failure -Suspect multi-factorial etiology - most likely 2/2 undiagnosed COPD, untreated JOSE CARLOS and ongoing Tobacco Abuse -found to be more somnolent, abg showed pH 7.2 w/ CO2 104, moved to IMCU, bipap , now stable -COVID-19: Negative (Rapid Swab) -RVP: neg -Patient has been subsequently weened down to 4L NC - will try to wean and maintain O2 sat around 90% due to underlying COPD -DuhCente Q4H JESSICA -pulm consult: methylpred, acetazolamine added -consulted CM- needs PCP, outpt sleep study #Hypercapnia -likely due to undx JOSE CARLOS, COPD, obesity hypoventilation -put on bipap # Morbid Obesity -contributing factor to current resp status -Will encourage HH w/ Low Sodium Diet # Tobacco Abuse -Patient endorses a 2PPD Hx -Nicotine Patch 21 mg QD -Will encourage Tobacco Abuse Cessation at subsequent appointment PCP: CC Code: Full Activity: Ad obdulia Diet: HH VTE PPx: lovenox Dispo: Patient is currently stable in [facility] for Acute Hypoxic Respiratory Failure , on bipap. consulted CM for help with funding for outpatient sleep study, DC when stable. Expected LOS > 48H. Addendum - Attending - Attending Attestation Date/Time: 04/12/20 0151 I personally evaluated the patient and discussed the management with Dr. Gaming. I agree with the History, Examination, Assessment and Plan documented above with any addition or exceptions noted below. Patient doing improved this morning. Was having worsening hypercapnia with somnolence yesterday that required transfer for Bipap. He reports feeling improved today. Continue steroids, nebs, respiratory support as needed. Suspect combo of JOSE CARLOS/OHS and COPD with exacerbation. Needs outpatient sleep study.
[2020-04-12] MEDS: Enoxaparin Sodium 40 MG/0.4 ML SYRINGE SC SCH (09:09)
[2020-04-12] MEDS: Nicotine 21 MG PATCH TD SCH (09:09)
[2020-04-12] MEDS: acetaZOLAMIDE Sodium 500 mg Vial IVP SCH ×2 (09:09→21:04)
--- NOTE | 2020-04-12 12:01 | PRG ---
DATE OF SERVICE: 04/12/2020 SUBJECTIVE: Mr. Candelario is awake, alert, follows commands. He is about to eat lunch. OBJECTIVE: VITAL SIGNS: Temperature 97.7, pulse 97, blood pressure 163/102, O2 saturation 94%. HEENT: Unremarkable except for class 4 Mallampati airway. NECK: No JVD. CHEST: Clear. CARDIAC: S1 and S2. Regular. ABDOMEN: Soft. EXTREMITIES: No edema. LABORATORY DATA: Sodium 137, potassium 4.6, BUN 10, creatinine 0.7, glucose 170. White blood cell count 12, hematocrit 46, and platelet count 218. ASSESSMENT: Obstructive sleep apnea/obesity hypoventilation syndrome. PLAN: It is a difficult situation. This patient really needs a home BiPAP. He told me he could not afford one even if offered at a discounted [employer]. This is also the reason he has not done a sleep study in the past. My recommendation would be to keep him on the acetazolamide. If case management can meet with him to see if he would qualify for Medicaid or something that would allow us to do a sleep study and get him a CPAP or BiPAP that would be preferable. Job ID: [id number]
[2020-04-13 03:52] LABS: #Eosinphils 0.1 thou/uL (0.0-0.7); #Lymphocytes 1.2 thou/uL (1.20-3.40); #Monocytes 0.7 thou/uL (0.11-0.59); #Neutrophils 14.8 thou/uL (1.40-6.50); %Eosinophils 0.3 % (0.0-10.0); %Lymphocytes 7.3 % (21.0-51.0); %Neutrophils 88.4 % (42.0-75.0); Hemoglobin 15.2 g/dL (14.0-18.0); Mean Corpuscular HGB CONC 32.4 g/dL (32.0-36.0); Mean Corpuscular Hemoglobin 32.7 pg (27.0-31.0); Mean Platelet Volume 8.8 fL (7.4-10.4); Platelet Count 247 thou/uL (130-400); RBC Distribution Width 13.4 % (11.5-14.5); Red Blood Cell (RBC) Count 4.64 mill/uL (4.70-6.10); White Blood Cell (WBC) Count 16.8 thou/uL (4.8-10.8)
[2020-04-13 04:20] LABS: Anion Gap 14 mmol/L (10-20); BUN (Urea Nitrogen) 13 mg/dL (8.9-20.6); Calc. Creatinine Clearance 313 mL/min (70-130); Calcium 9.2 mg/dL (7.8-10.44); Carbon Dioxide 23 mmol/L (22-29); Chloride 103 mmol/L (98-107); Estimated GFR-MDRD Greater than 90; Glucose 173 mg/dL (70-105); Potassium 5.4 mmol/L (3.5-5.1); Sodium 135 mmol/L (136-145)
[2020-04-13] MEDS: methylPREDNISolone Sod Succ 40 MG VIAL IVP SCH (05:14)
[2020-04-13] MEDS: Nicotine 21 MG PATCH TD SCH (05:14)
--- NOTE | 2020-04-13 05:40 | PDOC.FM ---
- Subjective Subjective: Patient has no complaints this morning and says he slept on BIPAP last night. He is on RA this morning and says he is breathing well. Per nursing, patient eats the entirety of his 3 trays during the day, 2 additional lunch boxes, and ~ 10-15 juices per day. - Objective Vital Signs & Weight: Vital Signs (12 hours) Temp Pulse Resp Pulse Ox 04/13/20 03:52 98.0 F 04/13/20 02:09 81 04/13/20 02:08 82 18 96 04/12/20 23:23 97.9 F 04/12/20 22:38 79 20 96 04/12/20 19:18 97.9 F 04/12/20 19:05 96 04/12/20 18:50 81 18 99 Weight Weight 177.808 kg Most Recent Monitor Data Heart Rate from ECG 74 NIBP 145/98 NIBP BP-Mean 113 Respiration from ECG 16 SpO2 97 BPs: 133/70, 170,108, 145/98, 166/98 I&O: 04/11/20 04/12/20 04/13/20 06:59 06:59 06:59 Intake Total 3310 4020 Output Total 4350 5600 Balance -1040 -1580 Result Diagrams: 04/13/20 03:08 04/13/20 03:08 Phys Exam - Physical Examination Constitutional: NAD Respiratory: no wheezing, clear to auscultation bilateral Cardiovascular: RRR, no significant murmur Gastrointestinal: soft, non-tender Musculoskeletal: no edema, pulses present Neurological: non-focal Psychiatric: normal affect, A&O x 3 Dx/Plan - Plan Plan: Patient is a 40 y/o male with a PMH significant for Morbid Obesity and ongoing Tobacco Abuse who presents to the ED for evaluation of acute onset worsening of his chronic cough and subsequent SOB. # Acute Hypoxic Respiratory Failure -Suspect multi-factorial etiology - most likely 2/2 undiagnosed COPD, untreated JOSE CARLOS and ongoing Tobacco Abuse -Found to be more somnolent on 04/12, abg showed pH 7.2 w/ CO2 104, moved to IMCU , bipap, now stable -Patient using BIPAP at night, stable on RA this morning. -COVID-19: Negative (Rapid Swab) -RVP: neg -DuoNebs Q4H JESSICA -Pulm consult: methylpred, acetazolamine added -Consulted CM- needs PCP, outpt sleep study #Hypercapnia -likely due to undx JOSE CARLOS, COPD, obesity hypoventilation -put on bipap # Morbid Obesity -contributing factor to current resp status -Will encourage HH w/ Low Sodium Diet # Tobacco Abuse -Patient endorses a 2PPD Hx -Nicotine Patch 21 mg QD -Will encourage Tobacco Abuse Cessation at subsequent appointment PCP: CC Code: Full Activity: Ad obdulia Diet: HH VTE PPx: lovenox Dispo: Patient is currently stable in IMCU for Acute Hypoxic Respiratory Failure , on bipap at night. Consulted CM for help with funding for outpatient sleep study, DC when stable. Expected LOS > 48H. Addendum - Attending - Attending Attestation Date/Time: 04/13/20 [id number] I personally evaluated the patient and discussed the management with Dr. Cardoza. I agree with the History, Examination, Assessment and Plan documented above with any addition or exceptions noted below. pulm cleared for d/c. f/u outpatient sleep study. Discussed smoking cessation and diet with patient but he appears precontemplative regarding lifestyle changes.
[2020-04-13] MEDS: acetaZOLAMIDE Sodium 500 mg Vial IVP SCH (08:29)
[2020-04-13] MEDS: Enoxaparin Sodium 40 MG/0.4 ML SYRINGE SC SCH (08:32)
[2020-04-13] MEDS ORDERED: AcetaZOLAMIDE 250 MG TAB PO SCH (09:00)
--- NOTE | 2020-04-13 09:16 | PRG ---
DATE OF SERVICE: 04/13/2020 SUBJECTIVE: The patient is wearing BiPAP at night. He is arguing that he needs more food during the day. OBJECTIVE: VITAL SIGNS: His temperature is 97.6, pulse 86, respirations 20, O2 saturation 95% on 3 L, and blood pressure 133/70. HEENT: Class 4 Mallampati airway. NECK: No adenopathy or JVD. LUNGS: Clear. CARDIAC: S1 and S2. Regular. ABDOMEN: Soft. EXTREMITIES: No edema. ASSESSMENT: 1. Obesity hypoventilation syndrome/obstructive sleep apnea. 2. Morbid obesity. 3. Medical noncompliance. PLAN: 1. Stop the steroids. 2. Switch to p.o. acetazolamide. 3. If skilled nursing case manager can help him get a sleep study and/or BiPAP, that would be great. If not, then we probably reached level of all we can do for him in the hospital and he should be discharged. Job ID: [id number]
[2020-04-13 12:35] VITALS: TEMP 98.3
--- NOTE | 2020-04-14 00:30 | DIS ---
DATE OF ADMISSION: 04/11/2020 DATE OF DISCHARGE: 04/13/2020 RESIDENT: Scott Cardoza MD ADMITTING ATTENDING: Enzo Miller MD DISCHARGE ATTENDING: Mart Donovan MD CONSULTS: Pulmonology and Case Management. PROCEDURES: None. PRIMARY DIAGNOSIS: Acute hypoxic respiratory failure secondary to chronic obstructive pulmonary disease exacerbation. SECONDARY DIAGNOSES: Tobacco abuse and obesity. DISCHARGE MEDICATIONS: Lisinopril 10 mg p.o. daily. HISTORY OF PRESENT ILLNESS/HOSPITAL COURSE: A 40-year-old male with history of obesity, tobacco abuse, and likely undiagnosed sleep apnea, admitted for increasing shortness of breath, worsening chronic cough, and increased sputum production over 2 days. On first day of admission, the patient required 4 L of oxygen via nasal cannula, DuoNebs q.4 hours and was started on prednisone and azithromycin. The patient became increasingly somnolent later in the day and his ABGs resulted with pH of 7.2 and a pCO2 of 104.7. The patient was transferred to the ICU and placed on BiPAP. The patient's mentation and ABGs improved on BiPAP. Pulmonology was consulted and added acetazolamide to regimen. The patient was eventually weaned to nasal cannula and ultimately room air, only using BiPAP while sleeping. Blood pressures were consistently elevated through last night of stay ranging 140 to 170 over 95 to 110. The patient was discharged home with lisinopril 10 mg daily. Negative COVID. Negative respiratory panel. DISPOSITION: Stable. DISCHARGE INSTRUCTIONS: Location: Home. Diet: Heart healthy. Activity: As tolerated. Followup: Patient is self-pay and uninsured. He was given information for our clinic. Told to follow up through outpatient sleep study. Job ID: [id number] [facility]
== END 2020-04-13 15:26 | disposition home or self-care (01) | DRG 189 ==
LOC: ERS 02:13 → OBSVTOIN 03:10 → T4-B 03:10 → INTOOBSV 03:10 → IMCU/EMU 12:51
PROVIDERS: ADMIT Student in an Organized Health Care Education/Training Program; ATTEND Student in an Organized Health Care Education/Training Program
PROC: 5A09357 Assistance with Respiratory Ventilation, Less than 24 Consecutive Hours, Continuous Positive Airway Pressure (ICD-10-PCS; principal; 2020-04-13)
DX: J96.01 Acute respiratory failure with hypoxia (principal); J44.1 Chronic obstructive pulmonary disease with (acute) exacerbation; Z68.43 Body mass index [BMI] 50.0-59.9, adult; E66.2 Morbid (severe) obesity with alveolar hypoventilation; Z20.828 Contact with and (suspected) exposure to other viral communicable diseases; J96.02 Acute respiratory failure with hypercapnia; F17.210 Nicotine dependence, cigarettes, uncomplicated; Z87.442 Personal history of urinary calculi; Z91.013 Allergy to seafood; Z91.14 Patient's other noncompliance with medication regimen
CPT/HCPCS: 36415; 71045; 80048; 82805; 84145; 84484; 85025; 87633; 94640; 94660; 99285; G0378; J1120; J1650; J2920; J7512; J7620; U0002